=== PATIENT | male | born 1950 | race Caucasian/White ===

== ENCOUNTER 2019-01-12 08:53 | Observation (INO) | payer MEDICARE, OTHER ==
[~2019-01-12] VITALS: Ht 170.2 cm; Wt 80.6 kg
[2019-01-12] MEDS ORDERED: furosemide 40mg/4ml inj IV ONE (10:05)
[2019-01-12] MEDS ORDERED: furosemide 10 MG/1 ML 10ml inj IV ONE (10:10)
[2019-01-12 10:41] LABS: ALANINE AMINOTRANSFERASE 23 U/L (12-78); ALBUMIN 2.9 G/DL (3.4-5.0); ALBUMIN/GLOBULIN RATIO 0.7 (1.1-1.5); ALKALINE PHOSPHATASE 238 IU/L (46-116); ASPARTATE AMINO TRANSFERASE 42 U/L (10-37); BILIRUBIN,TOTAL 1.8 MG/DL (0.1-1.0); BLOOD UREA NITROGEN 14 MG/DL (7-18); BUN/CREATININE RATIO 14.9 (5.4-32.0); CALCIUM 8.9 MG/DL (8.5-10.1); CHLORIDE 98 MMOL/L (99-107); CREATININE 0.94 MG/DL (0.60-1.10); GLUCOSE 86 MG/DL (70-104); TOTAL CARBON DIOXIDE 28.2 MMOL/L (24-32); eGFR 80 ML/MIN
[2019-01-12 10:56] LABS: ANION GAP 11 (8-16); POTASSIUM 3.9 MMOL/L (3.5-5.1); SODIUM 137 MMOL/L (135-145)
[2019-01-12] MEDS ORDERED: FURO-150 PO (11:29)
[2019-01-12] MEDS ORDERED: POTA20PA40 PO (11:31)
[2019-01-12 11:34] LABS: BASOPHILS # (AUTO) 0.1 X10'3 (0-0.2); BASOPHILS % (AUTO) 1.4 % (0-1); EOSINOPHILS # (AUTO) 0.1 X10'3 (0-0.9); EOSINOPHILS % (AUTO) 0.6 % (0-6); HEMATOCRIT 27.6 % (42.0-52.0); HEMOGLOBIN 8.4 g/dl (14.0-17.9); LYMPHOCYTES # (AUTO) 1.2 X10'3 (1.1-4.8); LYMPHOCYTES % (AUTO) 12.6 % (21-51); MEAN CORPUSCULAR HEMOGLOBIN 20.3 PG (27.0-31.0); MEAN CORPUSCULAR HGB CONC 30.3 g/dL (33.0-36.5); MEAN CORPUSCULAR VOLUME 66.9 FL (78-98); MEAN PLATELET VOLUME 6.9 FL (7.4-10.4); MONOCYTES # (AUTO) 0.7 X10'3 (0-0.9); MONOCYTES % (AUTO) 7.3 % (2-12); NEUTROPHILS # (AUTO) 7.4 X10'3 (1.8-7.7); NEUTROPHILS % (AUTO) 78.1 % (42-75); PLATELET COUNT 247 X10'3 (140-440); RED BLOOD COUNT 4.13 X10'6 (4.70-6.10); RED CELL DISTRIBUTION WIDTH 22.4 % (11.5-14.5); WHITE BLOOD COUNT 9.5 X10'3 (4.5-11.0)
[2019-01-12 12:28] LABS: CLARITY,URINE CLEAR (Clear); COLOR,URINE YELLOW (Yellow); GLUCOSE, URINE NEGATIVE (Neg); KETONES,URINE NEGATIVE (Neg); LEUKOCYTE ESTERASE ,URINE NEGATIVE (Neg); NITRITES, URINE NEGATIVE (Neg); OCCULT BLOOD,URINE NEGATIVE (Neg); PH,URINE 6.5 (4.8-8.0); PROTEIN,URINE NEGATIVE (Neg); UROBILINOGEN,URINE 0.2 E.U/dL (0.2-1.0)
[2019-01-12 12:29] LABS: ANISOCYTOSIS 3+; HYPOCHROMASIA 1+; MICROCYTOSIS 2+; PLATELET ESTIMATE NORMAL; POIKILOCYTOSIS 1+; POLYCHROMASIA FEW; STOMATOCYTES 1+; TARGET CELLS FEW; TEAR DROP CELLS FEW
[2019-01-12 12:35] LABS: UA COLLECTION TYPE URINAL
[2019-01-12] MEDS ORDERED: LISI10TA4 PO (13:35)
[2019-01-12] MEDS ORDERED: FURO20TA4 PO (13:35)
[2019-01-12] MEDS ORDERED: INDO25CA18 PO (13:35)
[2019-01-12] MEDS ORDERED: POTA10CA44 PO (13:35)
[2019-01-12] MEDS ORDERED: ALLO300T8 PO (13:35)
[2019-01-12] MEDS ORDERED: mag hydrox/Alum hydrox/simeth 30ml oral suspension PO PRN (14:10)
[2019-01-12] MEDS: K and/or MAG REPLACEMENT MC SCH (14:10)
[2019-01-12] MEDS ORDERED: acetaminophen 325mg tablet PO PRN (14:10)
[2019-01-12] MEDS ORDERED: ondansetron/PF 4mg/2ml inj IV PRN (14:10)
[2019-01-12] MEDS ORDERED: magnesium 2GM in 50ml NS 50 ML IV PRN (14:10)
[2019-01-12] MEDS ORDERED: magnesium 4gm in 100ml NS 100 ML IV PRN (14:10)
[2019-01-12] MEDS ORDERED: potassium Cl 20 mEq SR tablet PO PRN (14:10)
[2019-01-12] MEDS ORDERED: magnesium hydroxide 30ml (MOM) UD suspension PO PRN (14:10)
[2019-01-12] MEDS ORDERED: potassium Cl 40MEQ/NS 500ml 500 ML IV PRN ×2 (14:10)
[2019-01-12 15:56] LABS: INR 1.2 INR; PARTIAL THROMBOPLASTIN TIME 28 SECONDS (22-32)
[2019-01-12] MEDS ORDERED: furosemide 40mg/4ml inj IV SCH (20:00)
[2019-01-12] MEDS ORDERED: heparin, porcine 5000 units/ml vial SQ SCH (20:00)
[2019-01-12] MEDS: allopurinol 300 MG tablet PO SCH (20:57)
--- NOTE | 2019-01-12 21:12 | NUR ---
MD LI AWARE OF PTS TSH. NO ORDERS EXPECTED
--- NOTE | 2019-01-13 02:15 | NUR ---
REPORT RECIEVED FROM HUMPHREY HUERTA. QUESTIONS ASKED AND ANSWERED. PATIENT WILL BE TRANSFERED VIA [place].
[2019-01-13 02:30] VITALS: BP 149/96
--- NOTE | 2019-01-13 03:00 | NUR ---
PATIENT ARRIVED AT 0230 VIA GURNEY. PATIENT AMBULATED FROM [facility] [place] TO BED WITH NO ASSISTANCE. PATIENT IS ALERT AND AWARE THAT HE WILL BE MEETING WITH CARDIOLOGY IN THE MORNING. PATIENT AWARE OF BED, CALL LIGHT, PHONE AND TV FUNCTIONS. SKIN CHECK AND ASSESSMENT COMPLETED. PATIENT HAS NO CONCERNS AT THE MOMENT AND WOULD LIKE TO REST.
[2019-01-13 06:00] VITALS: BP 137/88
[2019-01-13 06:00] LABS: HEMATOCRIT 25.2 % (42.0-52.0); HEMOGLOBIN 7.5 g/dl (14.0-17.9); MEAN CORPUSCULAR HEMOGLOBIN 20.1 PG (27.0-31.0); MEAN CORPUSCULAR HGB CONC 29.8 g/dL (33.0-36.5); MEAN CORPUSCULAR VOLUME 67.6 FL (78-98); PLATELET COUNT 239 X10'3 (140-440); RED BLOOD COUNT 3.72 X10'6 (4.70-6.10); RED CELL DISTRIBUTION WIDTH 22.5 % (11.5-14.5)
[2019-01-13 06:13] LABS: ALBUMIN 2.6 G/DL (3.4-5.0); ANION GAP 7 (8-16); BLOOD UREA NITROGEN 16 MG/DL (7-18); BUN/CREATININE RATIO 13.2 (5.4-32.0); CALCIUM 8.6 MG/DL (8.5-10.1); CHLORIDE 100 MMOL/L (99-107); CHOL/HDL RATIO 2.3 (0.00-4.99); CHOLESTEROL 91 MG/DL (0-200); CREATININE 1.21 MG/DL (0.60-1.10); GLUCOSE 84 MG/DL (70-104); HDL CHOLESTEROL 39 MG/DL (35-60); LDL CHOLESTEROL 41 MG/DL (50-100); MAGNESIUM 1.1 MG/DL (1.5-2.4); POTASSIUM 3.3 MMOL/L (3.5-5.1); SODIUM 138 MMOL/L (135-145); TOTAL CARBON DIOXIDE 31.1 MMOL/L (24-32); TRIGLYCERIDES 68 MG/DL (20-135); eGFR 60 ML/MIN
[2019-01-13 06:33] LABS: INR 1.1 INR; PARTIAL THROMBOPLASTIN TIME 28 SECONDS (22-32)
--- NOTE | 2019-01-13 06:39 | NUR ---
Patient in room PCU 3016. I have received report from BRADLEY Lauhglin and had the opportunity to ask questions and assume patient care. Patient awake in bed and in no acute distress. Will continue to monitor.
[2019-01-13] MEDS ORDERED: potassium chloride 10mEq CAPSULE.SA PO SCH (08:00)
[2019-01-13] MEDS: K and/or MAG REPLACEMENT MC SCH (08:00)
[2019-01-13] MEDS: potassium chloride 10mEq ER tablet PO SCH (08:49)
[2019-01-13] MEDS: magnesium Cl slow-release 64mg tablet PO PRN ×2 (08:49→19:43)
[2019-01-13] MEDS: potassium Cl 20 mEq SR tablet PO PRN ×3 (08:49→19:43)
[2019-01-13] MEDS: metoprolol tartrate 12.5mg (1/2 tablet) PO SCH ×2 (08:50→19:38)
[2019-01-13] MEDS: enoxaparin 80mg/0.8ml syringe SUBCUT SCH ×2 (08:51→19:39)
--- NOTE | 2019-01-13 08:51 | NUR ---
Administered zestril 10 mg PO. Used 2 patient identification. Medication administration did not save in computer.
[2019-01-13] MEDS: lisinopril 10 MG tablet PO SCH (08:53)
[2019-01-13] MEDS: allopurinol 300 MG tablet PO SCH ×2 (10:54→19:37)
[2019-01-13 11:00] VITALS: BP 130/73
--- NOTE | 2019-01-13 11:01 | NUR ---
Paged Dr. Wang PAGER ID: [phone] MESSAGE: Sandra Jeanette [phone]. RE: Fabio Fernandez [phone]. Patient complains of headache. No PRN pain meds available. Thank you.
[2019-01-13] MEDS: acetaminophen 325mg tablet PO PRN ×2 (11:24→19:42)
[2019-01-13 15:00] VITALS: BP 121/67
--- NOTE | 2019-01-13 18:24 | NUR ---
Problems reprioritized. Patient report given, questions answered & plan of care reviewed with Jaylin HUERTA.
--- NOTE | 2019-01-13 18:33 | NUR ---
Patient in room PCU 3016. I have received report from BRADLEY Flores and had the opportunity to ask questions and assume patient care.
[2019-01-13 19:00] VITALS: BP 123/80
[2019-01-13] MEDS: furosemide 20 MG/2 ML vial IV SCH (19:38)
[2019-01-13 23:00] VITALS: BP 130/79
[2019-01-14 03:00] VITALS: BP 137/83
[2019-01-14 05:55] LABS: HEMATOCRIT 24.4 % (42.0-52.0); HEMOGLOBIN 7.2 g/dl (14.0-17.9); MEAN CORPUSCULAR HGB CONC 29.5 g/dL (33.0-36.5); MEAN CORPUSCULAR VOLUME 68.1 FL (78-98); PLATELET COUNT 234 X10'3 (140-440); RED BLOOD COUNT 3.59 X10'6 (4.70-6.10); RED CELL DISTRIBUTION WIDTH 22.6 % (11.5-14.5); WHITE BLOOD COUNT 5.4 X10'3 (4.5-11.0)
[2019-01-14 06:00] VITALS: BP 126/74
[2019-01-14 06:08] LABS: ALBUMIN 2.6 G/DL (3.4-5.0); ANION GAP 6 (8-16); BLOOD UREA NITROGEN 19 MG/DL (7-18); BUN/CREATININE RATIO 16.7 (5.4-32.0); CALCIUM 8.6 MG/DL (8.5-10.1); CHLORIDE 102 MMOL/L (99-107); CREATININE 1.14 MG/DL (0.60-1.10); GLUCOSE 101 MG/DL (70-104); MAGNESIUM 1.2 MG/DL (1.5-2.4); PHOSPHORUS 3.2 MG/DL (2.3-4.5); POTASSIUM 3.9 MMOL/L (3.5-5.1); SODIUM 139 MMOL/L (135-145); eGFR 64 ML/MIN
--- NOTE | 2019-01-14 06:09 | NUR ---
Problems reprioritized. Patient report given, questions answered & plan of care reviewed with BRADLEY Pelletier.
--- NOTE | 2019-01-14 06:14 | NUR ---
PAGER ID: [phone] MESSAGE: [phone] Fabio Fernandez is complaining of 8/10 bilateral leg pain. Only has Tylenol for pain. Can he get something stronger for pain control? BRADLEY Pelletier Ext [phone]
--- NOTE | 2019-01-14 06:19 | NUR ---
Patient in room U 3016. I have received report from BRADLEY Luz and had the opportunity to ask questions and assume patient care. Addendum: 01/14/19 at 0631 by Prabhu Cloud RN Received report from BRADLEY Mosqueda
[2019-01-14] MEDS ORDERED: HYDROcodone/acetaminophen 5mg/325mg tablet PO PRN (06:20)
[2019-01-14 06:23] LABS: INR 1.1 INR; PARTIAL THROMBOPLASTIN TIME 32 SECONDS (22-32)
[2019-01-14] MEDS: furosemide 20 MG/2 ML vial IV SCH (07:46)
[2019-01-14] MEDS: metoprolol tartrate 12.5mg (1/2 tablet) PO SCH (07:47)
[2019-01-14] MEDS: magnesium Cl slow-release 64mg tablet PO PRN (07:47)
[2019-01-14] MEDS: potassium chloride 10mEq ER tablet PO SCH (07:47)
[2019-01-14] MEDS: allopurinol 300 MG tablet PO SCH (07:48)
[2019-01-14] MEDS: lisinopril 10 MG tablet PO SCH (07:48)
[2019-01-14] MEDS: enoxaparin 80mg/0.8ml syringe SUBCUT SCH (07:49)
[2019-01-14] MEDS: K and/or MAG REPLACEMENT MC SCH (08:00)
[2019-01-14] MEDS ORDERED: FURO20TA4 PO (10:18)
[2019-01-14] MEDS ORDERED: METO25TA6 PO (10:18)
[2019-01-14] MEDS ORDERED: APIX5TAB3 PO (10:20)
[2019-01-14] MEDS ORDERED: magnesium oxide 400mg tablet PO ONE (10:30)
[2019-01-14 11:00] VITALS: BP 135/87
--- NOTE | 2019-01-14 12:57 | NUR ---
Discharged. IV and tele out. Educated on CHF and Afib. Given [facility] CHF edu and cardiac rehab schedule. Educated on meds and follow-up. Given provider card and follow-up date of 01/15/19 at 1200. Given 800mg Mg Ox before DC per MD orders. Stable per MD for DC. Meds called into [facility] on [address].
--- NOTE | 2019-01-14 13:43 | NUR ---
Delayed discharged due to patient not having a PCP for follow-up needed for CHF diagnoses. CM was contacted and we were able to set up appointment with a provider.
== END 2019-01-14 11:37 | disposition home or self-care (01) ==
LOC: ER 08:54 → CMPBEDREQ 01-13 02:27 → PCU 3S 01-13 02:44 → INTOOBSV 01-13 02:44
PROVIDERS: ADMIT Family Medicine; ATTEND Family Medicine
DX: I11.0 Hypertensive heart disease with heart failure (principal); I50.9 Heart failure, unspecified; E78.5 Hyperlipidemia, unspecified; K26.9 Duodenal ulcer, unspecified as acute or chronic, without hemorrhage or perforation; D12.6 Benign neoplasm of colon, unspecified; D50.9 Iron deficiency anemia, unspecified; R74.0 Nonspecific elevation of levels of transaminase and lactic acid dehydrogenase [LDH]; F10.99 Alcohol use, unspecified with unspecified alcohol-induced disorder; Z90.3 Acquired absence of stomach [part of]
CPT/HCPCS: 36415; 71045; 80048; 80053; 80061; 81003; 83735; 83880; 84100; 84443; 85025; 85027; 85610; 85730; 87070; 93005; 93306; 96372; 96374; 96376; 97116; 97161; 97530; 99284; G0378; J1644; J1940; 99285; J1650